=== PATIENT | female | born 1970 | race Hispanic/Latino ===

== ENCOUNTER 2017-12-13 22:24 | Emergency (ER) | payer BC, OTHER | END 2017-12-14 00:38 | disposition home or self-care (01) | LOC: EDH 22:24 | DX: R13.10 Dysphagia, unspecified (principal); R07.0 Pain in throat; E78.5 Hyperlipidemia, unspecified | CPT/HCPCS: 70360; 71046 ==

== ENCOUNTER → 2023-11-10 | Outpatient (CLI) | payer BC | END | disposition home or self-care (01) | LOC: WHH 10:53 | PROVIDERS: ATTEND Nurse Practitioner Family | DX: L02.416 Cutaneous abscess of left lower limb (principal); E78.5 Hyperlipidemia, unspecified | CPT/HCPCS: 99205; 99215; G0463 ==

== ENCOUNTER → 2023-11-25 | Outpatient (CLI) | payer BC | END | disposition home or self-care (01) | LOC: WHH 10:59 | PROVIDERS: ATTEND Nurse Practitioner Family | DX: L02.416 Cutaneous abscess of left lower limb (principal); E78.5 Hyperlipidemia, unspecified; Z79.899 Other long term (current) drug therapy | CPT/HCPCS: 99214 ==